=== PATIENT | male | born 1960 | race Hispanic/Latino ===

== ENCOUNTER 2018-09-12 06:51 | Emergency (ER) | payer BC ==
[~2018-09-12 06:51] MED LIST: ASPI-1012 PO; GLIM2TAB3 PO; HYDR-4457 PO; LISI1TAB13 PO; METF-446 PO; PRAV40TA3 PO; allopurinol PO
== END 2018-09-12 06:55 | disposition home or self-care (01) ==
LOC: EDH 06:51
DX: T16.2XXA Foreign body in left ear, initial encounter (principal); E11.9 Type 2 diabetes mellitus without complications; I10 Essential (primary) hypertension; Z90.49 Acquired absence of other specified parts of digestive tract; X58.XXXA Exposure to other specified factors, initial encounter; Y93.89 Activity, other specified; Y92.89 Other specified places as the place of occurrence of the external cause; Y99.8 Other external cause status
CPT/HCPCS: 69200